=== PATIENT | male | born 1990 | race Caucasian/White ===

== ENCOUNTER 2021-12-13 23:12 | Inpatient (IN) | payer OTHER ==
[~2021-12-13] VITALS: Ht 188 cm; Wt 85.6 kg
[2021-12-14] MEDS ORDERED: HYDROCORTISONE ACETATE 25 MG SUPP.RECT PR PRN (00:30)
--- NOTE | 2021-12-14 00:52 | PHYS DOC ---
Past Medical History Past Surgical History: Other Additional Past Surgical Histo: HEMORRHOIDECTOMY General Adult EDM: Chief Complaint: HEMORRHOIDS HPI: HPI: Patient is a 31 year old male who presents with painful external hemorrhoids. Patient has a longstanding history of chronic hemorrhoid issues as well as rectal sphincter rupture. He states that for the past 3 days, his chronic hemorrhoids have been causing him more pain. At this time, he is unable to walk without pain. Each time he passes a bowel movement, he states that there is blood on the toilet stool as well as the stool itself. Patient states, "it looks really bad. I made the mistake of looking at it yesterday. I shouldn't have done that." Review of Systems: Review of Systems: ROS negative or noncontributory except as mentioned in HPI. Heart Score: C/O Chest Pain: No Current Medications: Current Medications Medications (Trade) Dose Ordered Sig/Cash Start Time Stop Time Status Last Admin Dose Admin Hydrocortisone Acetate (Anucort-Hc) 25 mg 1X PRN 12/14/21 00:30 UNV Physical Exam: PE: Constitutional: Well developed, well nourished, non-toxic appearance, disheveled. HENT: Normocephalic, atraumatic, bilateral external ears normal, oropharynx moist, no oral exudates, nose normal. Eyes: EOMI, conjunctiva normal, no discharge. Neck: Normal range of motion, no stridor. Rectal: External hemorrhoids present, largest is 1.5cmx2.5cm with a singular area that is firm and dark, does not appear to be thrombosed but is exquisitely tender, smaller hemorrhoids surrounding anus obstructing view, did not perform NED secondary to patient discomfort. Skin: Warm, dry, no erythema, no rash. Back: No tenderness, no CVA tenderness. Extremities: No cyanosis, no clubbing, ROM intact, no edema. Neurologic: Alert and oriented x4, no focal deficits noted. Current Patient Data: Vital Signs: Vital Signs Date Time Temp Pulse Resp B/P (MAP) Pulse Ox O2 Delivery O2 Flow Rate FiO2 12/13/21 23:50 98.8 88 20 164/92 (116) 99 Room Air 98.8 Course & Med Decision Making: Course & Med Decision Making Pertinent Labs and Imaging studies reviewed. (See chart for details) Patient is a 31-year-old homeless male who presents with pain secondary to hemorrhoids. Patient reports chronic issues and a history of having thrombosed hemorrhoids excised as well as rectal sphincter rupture x2. As patient will be unable to implement supportive measures to treat his hemorrhoids and he has exquisite pain, he will be admitted to hospitalist service with consult for general surgery. Patient amenable to admission. Dragon Disclaimer: Draglatricia Disclaimer: This electronic medical record was generated, in whole or in part, using a voice recognition dictation system. Departure Departure Impression: Primary Impression: Inflamed external hemorrhoid Additional Impressions: H/O rectal sphincterotomy Patient unable to obtain medication Intractable pain Disposition: ADMITTED INPATIENT Admitting Physician: YRN Almeida) Condition: GUARDED LISANDRA BARTH December 14, 2021 00:52
[2021-12-14 02:05] VITALS: BP 121/78
[2021-12-14] MEDS ORDERED: MORPHINE SULFATE 2 MG/ML INJ. IVP PRN (03:30)
[2021-12-14] MEDS ORDERED: ONDANSETRON PF 4 MG/2 ML VIAL. IVP PRN (03:30)
[2021-12-14] MEDS ORDERED: NICOTINE 21MG PATCH. TD PRN (06:15)
--- NOTE | 2021-12-14 06:19 | NUR ---
Pt stated that he has SI and his plan is to hang himself. Suicide protocol started and pt placed on 1:1.
--- NOTE | 2021-12-14 12:11 | PDOC2 ---
CONSULT Date of Consult Date of Consult DATE: 12/14/21 TIME: 12:07 History of Present Illness Reason for Visit: Pt is a 31 year old male who reported to the ER due to hemorrhoid related anal pain. He has had similar problems with hemorrhoids in the past and states he had a prior hemorrhoidectomy. He states the pain became more severe over the last couple of days with significant swelling of the hemorrhoids. He reports frequent constipation. Past Medical History Past Medical History Hypertension, asthma Past Surgical History Past Surgical History prior hemorhoidectomy Social History 1 pack per day Current Problem List Problem List Problems Medical Problems: (1) Intractable pain Status: Acute (2) Patient unable to obtain medication Status: Acute Current Medications Current Medications Current Medications Hydrocortisone Acetate (Anucort-Hc) 25 mg 1X PRN [place] RECTAL PAIN Last administered on 12/14/21at 01:30; Start 12/14/21 at 00:30 Morphine Sulfate (Morphine Sulfate) 2 mg PRN Q2HR PRN IVP PAIN Last administered on 12/14/21at 04:56; Start 12/14/21 at 03:30 Ondansetron HCl (Zofran) 4 mg PRN Q6HRS PRN IVP NAUSEA/VOMITING; Start 12/14/21 at 03:30 Nicotine (Nicoderm Cq 21mg) 1 patch PRN DAILY PRN TD SMOKING CESSATION Last administered on 12/14/21at 06:38; Start 12/14/21 at 06:15 Lorazepam (Ativan) 2 mg Q6H PO Last administered on 12/14/21at 06:37; Start 12/14/21 at 06:30; Stop 12/15/21 at 12:31 Allergies Allergies: Coded Allergies: Penicillins (Verified Allergy, Intermediate, 12/14/21) UNKNOWN ROS General: No: Chills, Night Sweats, Fatigue, Malaise, Appetite, Other PSYCHOLOGICAL ROS: No: Anxiety, Behavioral Disorder, Concentration difficultie, Decreased libido, Depression, Disorientation, Hallucinations, Hostility, Irritablity, Memory difficulties, Mood Swings, Obsessive thoughts, Physical abuse, Sexual abuse, Sleep disturbances, Suicidal ideation, Other Eyes: No Blurry vision, No Decreased vision, No Double vision, No Dry eyes, No Excessive tearing, No Eye Pain, No Itchy Eyes, No Loss of vision, No Photophobia, No Scotomata, No Uses contacts, No Uses glasses, No Other Respiratory: No: Cough, Hemoptysis, Orthopnea, Pleuritic Pain, Shortness of breath, SOB with excertion, Sputum Changes, Stridor, Tachypnea, Wheezing, Other Cardiovascular: No Chest Pain, No Palpitations, No Orthopnea, No Paroxysmal Noc. Dyspnea, No Edema, No Lt Headedness, No Other Gastrointestinal: No Nausea, No Vomiting, No Abdominal Pain, No Diarrhea, No Constipation, No Melena, No Hematochezia, No Other Genitourinary: No Dysuria, No Frequency, No Incontinence, No Hematuria, No Retention, No Discharge, No Urgency, No Pain, No Flank Pain, No Other, No , No , No , No , No , No , No Musculoskeletal: No Gait Disturbance, No Joint Pain, No Joint Stiffness, No Joint Swelling, No Muscle Pain, No Muscular Weakness, No Pain In:, No Swelling In:, No Other Neurological: No Behavorial Changes, No Bowel/Bladder ControlChng, No Confusion, No Dizziness, No Gait Disturbance, No Headaches, No Impaired Coord/balance, No Memory Loss, No Numbness/Tingling, No Seizures, No Speech Problems, No Tremors, No Visual Changes, No Weakness, No Other Skin: No Dry Skin, No Eczema, No Hair Changes, No Lumps, No Mole Changes, No Mottling, No Nail Changes, No Pruritus, No Rash, No Skin Lesion Changes, No Other, No Acne Physical Exam Physical Exam anal exam with marked tenderness, external hemorrhoids noted with edema, appear acutely inflamed General: Alert, Oriented X3, Cooperative HEENT: Atraumatic Lungs: Clear to auscultation Abdomen: Soft, No tenderness Extremities: No clubbing Skin: No rashes, No breakdown Neuro: Normal speech Vitals VITALS Vital Signs Date Time Temp Pulse Resp B/P (MAP) Pulse Ox O2 Delivery O2 Flow Rate FiO2 12/14/21 08:00 Room Air 12/14/21 05:35 18 12/14/21 02:05 98.4 79 121/78 (92) 99 98.4 Assessment/Plan Assessment/Plan Hemorrhoids, external, acutely inflamed; recommend conservative measures to improve the acute process; stool softeners, sitz baths, topical steroid agents etc; GI following, appreciate their assistance HILARY DURAN MD December 14, 2021 12:11
[2021-12-14 12:40] LABS: BARBITURATES NEG (NEG); BENZODIAZEPINES NEG (NEG); CANNABINOIDS POS (NEG); COCAINE NEG (NEG); METHADONE NEG (NEG); OPIATES POS (NEG); PHENCYCLIDINE NEG (NEG)
[2021-12-14 12:44] LABS: AMPHETAMINE/METHAMPHETAMINE POS (NEG)
[2021-12-14] MEDS ORDERED: oxyCODONE/APAP 5/325 1 TAB TABLET PO PRN (12:45)
[2021-12-14] MEDS: oxyCODONE/APAP 5/325 1 TAB TABLET PO PRN (13:09)
[2021-12-14] MEDS: DOCUSATE SODIUM 100 MG CAPSULE. PO SCH (13:11)
--- NOTE | 2021-12-14 14:00 | HP ---
DATE OF SERVICE: 12/14/2021 ADMIT DATE: 12/14/2021 CHIEF COMPLAINT: Rectal pain. HISTORY OF PRESENT ILLNESS: The patient is a pleasant 31-year-old male who I think is homeless. He presented with hemorrhoids. He has had a longstanding history of chronic hemorrhoids. He has had tears in the past and sphincter rupture. I discussed the case with ER physician. We are going to admit the patient with consultation to GI and General Surgery. PAST MEDICAL HISTORY: Hemorrhoids and hemorrhoidectomy. ALLERGIES: PENICILLIN. FAMILY HISTORY: Noncontributory. SOCIAL HISTORY: Does not drink, smoke or take drugs. MEDICATIONS: Reviewed, please refer to the MRAD. REVIEW OF SYSTEMS: GENERAL: No history of weight change, weakness or fevers. SKIN: No bruising, hair changes or rashes. EYES: No blurred, double or loss of vision. NOSE AND THROAT: No history of nosebleeds, hoarseness or sore throat. HEART: No history of palpitations, chest pain or shortness of breath on exertion. LUNGS: Denies cough, hemoptysis, wheezing or shortness of breath. GASTROINTESTINAL: He complains of rectal pain and hemorrhoids. GENITOURINARY: No history of frequency, urgency, hesitancy or nocturia. NEUROLOGIC: Denies history of numbness, tingling, tremor or weakness. PSYCHIATRIC: No history of panic, anxiety or depression. ENDOCRINE: No history of heat or cold intolerance, polyuria or polydipsia. EXTREMITIES: Denies muscle weakness, joint pain, pain on walking or stiffness. PHYSICAL EXAMINATION: VITALS: Within normal limits and are stable. GENERAL: No apparent distress. Alert and oriented. HEENT: Normal cephalic atraumatic, external auditory canals are patent. EYES: Extraocular muscles are intact, pupils are equally round and reactive to light and accommodation MUSCULOSKELETAL: Well developed, well nourished, good range of motion. ENDOCRINE: No thyromegaly was palpated. LYMPHATICS: No cervical chain or axillary nodes were noted. HEMATOPOIETIC: No bruising. NECK: Supple, no JVD, no thyromegaly was noted. LUNGS: Clear to auscultation in all lung balderas without rhonchi or wheezing. HEART: RRR, S1, S2 present. Peripheral pulses intact, no obvious murmurs were noted. ABDOMEN: Soft, nontender. Positive bowel sounds no organomegaly, normal bowel sounds. EXTREMITIES: Without any cyanosis, clubbing, or edema. Pedal pulses intact, Homans sign is negative. NEUROLOGIC: Normal speech, normal tone. A and O x 3, moves all extremities, no obvious focal deficits. PSYCHIATRIC: Normal affect, normal mood. Stable. SKIN: No ulcerations or rashes, good skin turgor, no jaundice. VASCULAR: Good capillary refill, neurovascular bundle appears to be intact. ASSESSMENT AND PLAN: Intractable pain and severe hemorrhoids. The patient will be admitted. We will start hydrocortisone, suppository p.r.n. morphine. Consult Gastroenterology. Consult General Surgery. Home meds. Deep venous thrombosis prophylaxis. Full code. TREY/HIGINIO/MOH DR: TREY/tara TID: [id number]
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
[2021-12-14 15:00] VITALS: BP 135/101
[2021-12-14 19:30] VITALS: BP 132/86
[2021-12-14] MEDS: HYDROCORTISONE 2.5% RECTAL CREAM 30GM TUBE. TP SCH (21:38)
[2021-12-14 23:20] VITALS: BP 138/97
[2021-12-15 03:00] VITALS: BP 155/89
[2021-12-15 07:00] VITALS: BP 134/83
[2021-12-15] MEDS: DOCUSATE SODIUM 100 MG CAPSULE. PO SCH (08:01)
[2021-12-15] MEDS: oxyCODONE/APAP 5/325 1 TAB TABLET PO PRN (08:15)
[2021-12-15] MEDS: HYDROCORTISONE 2.5% RECTAL CREAM 30GM TUBE. TP SCH (09:00)
--- NOTE | 2021-12-15 10:26 | PDOC ---
PROGRESS NOTES Date of Service DATE: 12/15/21 TIME: 10:25 Subjective Subjective pt in restroom; similar pain as before Objective Objective Vital Signs Date Time Temp Pulse Resp B/P (MAP) Pulse Ox O2 Delivery O2 Flow Rate FiO2 12/15/21 09:02 16 100 Room Air 12/15/21 07:00 98.1 104 134/83 (100) 98.1 Intake and Output 12/15/21 07:00 Intake Total 480 ml Balance 480 ml Intake Oral 480 ml # Voids 4 Physical Exam Physical Exam deferred as in restroom Assessment Assessment Problems Medical Problems: (1) Intractable pain Status: Acute (2) Patient unable to obtain medication Status: Acute Plan Plan of Care Continue with medical treatment; may take time for inflammation to improve; will monitor response, surgery remains an option, but ideal to have inflammation improve prior Comment Review of Relevant I have reviewed the following items ceci (where applicable) has been applied. Labs Laboratory Tests Test 12/14/21 11:10 Urine Opiates Screen Pos (NEG) Urine Methadone Screen Neg (NEG) Urine Barbiturates Neg (NEG) Urine Phencyclidine Screen Neg (NEG) Urine Amphetamine/Methamphetamine Pos (NEG) Urine Benzodiazepines Screen Neg (NEG) Urine Cocaine Screen Neg (NEG) Urine Cannabinoids Screen Pos (NEG) Urine Ethyl Alcohol Neg (NEG) Laboratory Tests Test 12/14/21 11:10 Urine Opiates Screen Pos (NEG) Urine Methadone Screen Neg (NEG) Urine Barbiturates Neg (NEG) Urine Phencyclidine Screen Neg (NEG) Urine Amphetamine/Methamphetamine Pos (NEG) Urine Benzodiazepines Screen Neg (NEG) Urine Cocaine Screen Neg (NEG) Urine Cannabinoids Screen Pos (NEG) Urine Ethyl Alcohol Neg (NEG) Medications Current Medications Hydrocortisone Acetate (Anucort-Hc) 25 mg 1X PRN [place] RECTAL PAIN Last administered on 12/14/21at 01:30; Start 12/14/21 at 00:30; Stop 12/14/21 at 12:25; Status DC Morphine Sulfate (Morphine Sulfate) 2 mg PRN Q2HR PRN IVP PAIN Last administered on 12/14/21at 04:56; Start 12/14/21 at 03:30 Ondansetron HCl (Zofran) 4 mg PRN Q6HRS PRN IVP NAUSEA/VOMITING; Start 12/14/21 at 03:30 Nicotine (Nicoderm Cq 21mg) 1 patch PRN DAILY PRN TD SMOKING CESSATION Last administered on 12/14/21at 06:38; Start 12/14/21 at 06:15 Lorazepam (Ativan) 2 mg Q6H PO Last administered on 12/15/21at 08:29; Start 12/14/21 at 06:30; Stop 12/15/21 at 12:31 Docusate Sodium (Colace) 100 mg DAILY PO Last administered on 12/15/21at 08:01; Start 12/14/21 at 13:00 Hydrocortisone (Proctosol-Hc) 1 shayy BID TP Last administered on 12/15/21at 09:00; Start 12/14/21 at 21:00 Oxycodone/ Acetaminophen (Percocet 5/325) 1 tab PRN Q4HRS PRN PO MODERATE PAIN; Start 12/14/21 at 12:45 Oxycodone/ Acetaminophen (Percocet 5/325) 2 tab PRN Q4HRS PRN PO SEVERE PAIN Last administered on 12/15/21at 08:15; Start 12/14/21 at 12:45 Vitals/I & O Vital Sign - Last 24 Hours 12/14/21 12/14/21 12/14/21 12/14/21 13:09 13:47 15:00 19:30 Temp 97.7 97.5 97.7 97.5 Pulse 107 69 Resp 16 16 16 18 B/P (MAP) 135/101 (112) 132/86 (101) Pulse Ox 99 99 97 93 O2 Delivery Room Air Room Air Room Air Room Air 12/14/21 12/14/21 12/15/21 12/15/21 20:00 23:20 03:00 07:00 Temp 97.5 98.0 98.1 97.5 98.0 98.1 Pulse 89 75 104 Resp 18 18 18 B/P (MAP) 138/97 (111) 155/89 (111) 134/83 (100) Pulse Ox 99 100 100 O2 Delivery Room Air Room Air Room Air Room Air 12/15/21 12/15/21 08:15 09:02 Resp 16 16 Pulse Ox 100 100 O2 Delivery Room Air Room Air Intake and Output 12/14/21 12/14/21 12/15/21 15:00 23:00 07:00 Intake Total 480 ml Balance 480 ml Justifications for Admission Other Justification HILARY DURAN MD December 15, 2021 10:26
[2021-12-15] MEDS ORDERED: OXYC1TAB15 PO (11:09)
--- NOTE | 2021-12-15 20:10 | DS ---
DATE OF DISCHARGE: 12/15/2021 ADMITTING DIAGNOSIS: Hemorrhoids. DISCHARGE DIAGNOSES: 1. Resolving hemorrhoids. 2. Methamphetamine abuse. CONSULTS: Dr. Frey, General Surgery. PROCEDURES: None. HOSPITAL COURSE: The patient is a pleasant middle-aged male who is on methamphetamine and he is homeless, basically presented with acute on chronic hemorrhoid issues. We gave him hemorrhoid suppositories, Anusol, pain meds. General Surgery felt he did not need any immediate surgical correction, but rather we can do conservative therapy. Today, I saw and examined him. He is doing well and wants to go home. We plan to discharge. DISPOSITION: Home. ACTIVITY: As tolerated. DIET: Low sodium. DISCHARGE MEDICATIONS: Please see the MRAD. OTHER MEDICATIONS: Proctosol-HC apply b.i.d. to hemorrhoid, [id number] Colace, [id number] nicotine patches. I did send him a prescription for oxycodone/Tylenol 5/325, 30 tablets, 1-2 q.4 hours p.r.n. pain. TOTAL TIME: [address]: Gary TID: [id number]
== END 2021-12-15 14:10 | disposition home or self-care (01) | DRG 395 ==
LOC: ER 23:12 → EEVIPCON 12-14 00:53 → 4 NORTH 12-14 00:53
PROVIDERS: ADMIT Internal Medicine; ATTEND Internal Medicine
DX: K64.4 Residual hemorrhoidal skin tags (principal); F15.10 Other stimulant abuse, uncomplicated; R26.2 Difficulty in walking, not elsewhere classified; K59.00 Constipation, unspecified; I10 Essential (primary) hypertension; J45.909 Unspecified asthma, uncomplicated; F17.210 Nicotine dependence, cigarettes, uncomplicated; Z59.00 Homelessness unspecified; Z88.0 Allergy status to penicillin; Z79.899 Other long term (current) drug therapy
CPT/HCPCS: 80307; E0160; J2270; 99285-25; G0378